=== PATIENT | male | born 1980 | race American Indian/Alaskan Native ===

== ENCOUNTER 2016-05-07 08:20 | Emergency (ER) | payer MEDICAID, OTHER ==
[2016-05-07 08:26] VITALS: BMI 21.3
[2016-05-07] MEDS ORDERED: Albuterol-Ipratrop 3 mg / 0.5 (3 ml) UD INH STA (08:36)
--- NOTE | 2016-05-07 08:46 | C.PDOC ---
History Of Present Illness Patient is a 36 y/o male that presents to the ED for evaluation of non- productive cough, and tactile fever since this morning. Patient states that he developed mild frontal headache this morning as well. Patient admits he ran outside without jacket yesterday. Notes possible sick contact at work. Otherwise , denies any ear pain, throat pain, congestion, shortness of breath, dizziness, vision change, nausea, vomiting, or any to other related symptoms. Time Seen by Provider: 05/07/16 08:31 Chief Complaint (Nursing): Cough, Cold, Congestion History Per: Patient History/Exam Limitations: no limitations Onset/Duration Of Symptoms: Hrs Current Symptoms Are (Timing): Still Present Location Of Pain: Headache Sick Contacts (Context): Individual(s) At Work (possible) Associated Symptoms: Fever (tactile), Cough. denies: Sore Throat, Sputum, Neck Pain, Sinus Drainage, Myalgias, Nasal Congestion, Nausea, Vomiting, Diarrhea Ear Symptoms: Bilateral: None Recent travel outside of the [place]: No Additional History Per: Patient Past Medical History Reviewed: Historical Data, Nursing Documentation, Vital Signs Vital Signs: Last Vital Signs Temp 99.5 F 05/07/16 08:27 Pulse 106 H 05/07/16 08:27 Resp 18 05/07/16 08:27 BP 149/92 H 05/07/16 08:27 Pulse Ox 98 05/07/16 08:54 - Medical History PMH: No Chronic Diseases Family History: States: Unknown Family Hx - Social History Hx Tobacco Use: Yes (HARDLY) Hx Alcohol Use: Yes Hx Substance Use: Yes - Immunization History Hx Tetanus Toxoid Vaccination: No Hx Influenza Vaccination: No Hx Pneumococcal Vaccination: No Review Of Systems Except As Marked, All Systems Reviewed And Found Negative. Constitutional: Positive for: Fever ENT: Negative for: Ear Pain, Nose Discharge, Nose Congestion, Throat Pain Respiratory: Positive for: Cough. Negative for: Shortness of Breath, SOB with Excertion, Sputum, Wheezing Gastrointestinal: Negative for: Nausea, Vomiting Neurological: Positive for: Headache. Negative for: Dizziness Physical Exam - Physical Exam Appears: Non-toxic, No Acute Distress Skin: Normal Color, Warm, Dry Head: Atraumatic, Normacephalic Eye(s): bilateral: Normal Inspection, EOMI Ear(s): Bilateral: Normal Nose: Normal Oral Mucosa: Moist Throat: Normal, No Erythema, No Exudate, No Drooling Neck: Normal ROM, Supple Chest: Symmetrical Cardiovascular: Rhythm Regular Respiratory: Normal Breath Sounds, No Rales, No Rhonchi, No Wheezing Extremity: Bilateral: Atraumatic, Normal Color And Temperature, Normal ROM Neurological/Psych: Oriented x3, Normal Speech Gait: Steady ED Course And Treatment O2 Sat by Pulse Oximetry: 98 (on RA) Pulse Ox Interpretation: Normal - Radiology CXR: Interpreted by Me, Viewed By Me CXR Interpretation: Yes: No Acute Disease Progress Note: CXR ordered and reviewed. Patient was given nebulizer treatment and Motrin PO. Patient remained afebrile and in no acute distress. Advise patient to take cough medicine as needed. Patient advised to also follow up with primary doctor or clinic for further evaluation Disposition Counseled Patient/Family Regarding: Diagnosis, Need For Followup, Rx Given - Disposition Referrals: [facility] [Outside] [facility] [Outside] Disposition: HOME/ ROUTINE Disposition Time: 09:39 Condition: STABLE Additional Instructions: Your chest xray was normal Please follow up with your doctor or clinic in few days for evaluation Take cough medicine as needed Take Tylenol or Motrin alternating every 4-6 hours for Fever 100.4F or higher. Rest and drink plenty of fluids. Prescriptions: Benzonatate [Tessalon Perles] 100 mg PO TID #30 sgl Instructions: Upper Respiratory Infection (ED) - POA Present On Arrival: None - Clinical Impression Clinical Impression: Upper respiratory infection - PA / HEALTH INFORMATION TECH / Resident Statement MD/DO has reviewed & agrees with the documentation as recorded. - Scribe Statement The provider has reviewed the documentation as recorded by the Kim Dong All medical record entries made by the Kim were at my direction and personally dictated by me. I have reviewed the chart and agree that the record accurately reflects my personal performance of the history, physical exam, medical decision making, and the department course for this patient. I have also personally directed, reviewed, and agree with the discharge instructions and disposition.
[2016-05-07] MEDS ORDERED: Albuterol-Ipratrop 3 mg / 0.5 (3 ml) UD ONE (09:00)
--- NOTE | 2016-05-07 10:23 | RAD ---
HISTORY: cough and fever COMPARISON: No prior. TECHNIQUE: Chest PA and lateral FINDINGS: LUNGS: No active pulmonary disease. PLEURA: No significant pleural effusion identified. No pneumothorax apparent. CARDIOVASCULAR: Normal. OSSEOUS STRUCTURES: No significant abnormalities. VISUALIZED UPPER ABDOMEN: Normal. OTHER FINDINGS: None. IMPRESSION: No active disease.
[2016-05-07 10:47] VITALS: BP 138/70; PULSE 90; RESP 16; TEMP 98.2
[2016-05-07 13:58] VITALS: O2SAT 98
== END 2016-05-07 10:44 | disposition home or self-care (01) ==
LOC: C.ER 08:20
DX: J06.9 Acute upper respiratory infection, unspecified (principal); Z72.0 Tobacco use

== ENCOUNTER 2016-11-13 14:42 | Emergency (ER) | payer MEDICAID ==
[2016-11-13 14:42] VITALS: BMI 21.3
[2016-11-13 15:41] VITALS: BP 132/72; PULSE 76; RESP 18; TEMP 97.9; O2SAT 95
== END 2016-11-13 15:38 | disposition left against medical advice (07) ==
LOC: C.ER 14:42
DX: R52 Pain, unspecified (principal); R42 Dizziness and giddiness; Z02.9 Encounter for administrative examinations, unspecified

== ENCOUNTER 2016-11-26 01:31 | Emergency (ER) | payer MEDICAID ==
[2016-11-26 01:31] VITALS: BMI 21.3
[2016-11-26 02:24] VITALS: TEMP 98.8; O2SAT 98
[2016-11-26 03:12] VITALS: BP 139/85; PULSE 88; RESP 16
--- NOTE | 2016-11-26 03:13 | C.PDOC ---
History Of Present Illness 36 year old male who presents to the ER with a complaint of cough and productive clear phlegm for the past week, associated with dizziness today after taking promethazine prescribed by his PMD. Patient reports he is no longer dizzy; denies chest pain, SOB, or palpitations. Time Seen by Provider: 11/26/16 01:58 Chief Complaint (Nursing): Dizziness/Lightheaded History Per: Patient History/Exam Limitations: no limitations Onset/Duration Of Symptoms: Days Current Symptoms Are (Timing): Still Present Recent travel outside of the [place]: No Past Medical History Reviewed: Historical Data, Nursing Documentation, Vital Signs Vital Signs: Last Vital Signs Temp 98.8 F 11/26/16 01:50 Pulse 88 11/26/16 03:11 Resp 16 11/26/16 03:11 BP 139/85 11/26/16 03:11 Pulse Ox 98 11/26/16 03:13 - Medical History PMH: No Chronic Diseases Surgical History: No Surg Hx Family History: States: Unknown Family Hx - Social History Hx Tobacco Use: Yes (HARDLY) Hx Alcohol Use: Yes Hx Substance Use: Yes - Immunization History Hx Tetanus Toxoid Vaccination: No Hx Influenza Vaccination: No Hx Pneumococcal Vaccination: No Review Of Systems Constitutional: Negative for: Fever, Chills Cardiovascular: Negative for: Chest Pain, Palpitations Respiratory: Positive for: Cough, Sputum (Clear). Negative for: Shortness of Breath Neurological: Positive for: Dizziness Physical Exam - Physical Exam Appears: Non-toxic, No Acute Distress Skin: Normal Color, Warm, Dry Head: Atraumatic, Normacephalic Eye(s): bilateral: Normal Inspection, PERRL, EOMI Oral Mucosa: Moist Chest: Symmetrical Cardiovascular: Rhythm Regular Respiratory: Normal Breath Sounds, No Rales, No Rhonchi, No Wheezing Gastrointestinal/Abdominal: Soft, No Tenderness Extremity: Normal ROM (x4) Neurological/Psych: Oriented x3, Normal Speech, Normal Cognition ED Course And Treatment O2 Sat by Pulse Oximetry: 98 (Room air) Pulse Ox Interpretation: Normal - Radiology CXR: Interpreted by Me, Viewed By Me CXR Interpretation: Yes: No Acute Disease Progress Note: On reevaluation, patient is sleeping comfortably and is in no distress; will discharge home with instructions to follow up with PMD. Disposition Counseled Patient/Family Regarding: Diagnosis, Need For Followup, Rx Given - Disposition Disposition: HOME/ ROUTINE Disposition Time: 03:11 Condition: STABLE Additional Instructions: Please follow up with PMD Increase PO fluids Return to ER if worse Prescriptions: Benzonatate [Tessalon Perles] 100 mg PO TID #20 sgl Cetirizine HCl [Zyrtec] 10 mg PO DAILY #20 capsule Instructions: Upper Respiratory Infection (ED) Forms: [employer] (Occitan) - Clinical Impression Clinical Impression: Upper respiratory infection, Drowsiness - Scribe Statement The provider has reviewed the documentation as recorded by the Scribalexa Flores All medical record entries made by the Jefibalexa were at my direction and personally dictated by me. I have reviewed the chart and agree that the record accurately reflects my personal performance of the history, physical exam, medical decision making, and the department course for this patient. I have also personally directed, reviewed, and agree with the discharge instructions and disposition.
--- NOTE | 2016-11-26 12:43 | RAD ---
HISTORY: COUGH, CHEST TIGHTNESS COMPARISON: 05/07/2016 TECHNIQUE: Chest PA and lateral FINDINGS: LUNGS: No active pulmonary disease. PLEURA: No significant pleural effusion identified. No pneumothorax apparent. CARDIOVASCULAR: Normal. OSSEOUS STRUCTURES: No significant abnormalities. VISUALIZED UPPER ABDOMEN: Normal. OTHER FINDINGS: None. IMPRESSION: No active disease. No significant interval change compared to the prior examination(s). Concordant results with the preliminary interpretation rendered by the emergency department physician procedure.
== END 2016-11-26 03:40 | disposition home or self-care (01) ==
LOC: C.ER 01:31
DX: J06.9 Acute upper respiratory infection, unspecified (principal); R40.0 Somnolence

== ENCOUNTER 2016-11-26 14:41 | Emergency (ER) | payer MEDICAID ==
[2016-11-26 14:45] VITALS: BMI 21.8
[2016-11-26 15:33] VITALS: BP 108/71; PULSE 87; RESP 16; TEMP 97.8; O2SAT 99
--- NOTE | 2016-11-26 17:31 | C.PDOC ---
History Of Present Illness Patient is a 36 y/o male who presents to the ED with a complaint of a cough for the last 2 weeks. Patient states cough is unproductive and denies fever. Patient was seen in ED last night for the same symptoms, but did not fill any prescriptions. No other physical complaints at this time. Chief Complaint (Nursing): Cough, Cold, Congestion History Per: Patient History/Exam Limitations: no limitations Onset/Duration Of Symptoms: Days (x2 weeks) Current Symptoms Are (Timing): Still Present Associated Symptoms: denies: Fever, Sputum Past Medical History Reviewed: Historical Data, Nursing Documentation, Vital Signs Vital Signs: Last Vital Signs Temp 97.8 F 11/26/16 15:31 Pulse 87 11/26/16 15:31 Resp 16 11/26/16 15:31 BP 108/71 11/26/16 15:31 Pulse Ox 99 11/26/16 17:32 - Medical History PMH: No Chronic Diseases Surgical History: No Surg Hx Family History: States: Unknown Family Hx - Social History Hx Tobacco Use: Yes (HARDLY) Hx Alcohol Use: Yes Hx Substance Use: Yes - Immunization History Hx Tetanus Toxoid Vaccination: No Hx Influenza Vaccination: No Hx Pneumococcal Vaccination: No Review Of Systems Constitutional: Negative for: Fever Respiratory: Positive for: Cough (non productive) Gastrointestinal: Negative for: Nausea, Vomiting Physical Exam - Physical Exam Appears: Well, Non-toxic, No Acute Distress Skin: Normal Color, Warm, Dry Head: Atraumatic, Normacephalic Oral Mucosa: Moist Tongue: Normal Appearing Throat: Normal Chest: Symmetrical Cardiovascular: Rhythm Regular, No Murmur Respiratory: Normal Breath Sounds, No Rales, No Rhonchi, No Wheezing Neurological/Psych: Oriented x3, Normal Speech, Normal Cognition ED Course And Treatment O2 Sat by Pulse Oximetry: 99 (room air) Pulse Ox Interpretation: Normal Progress Note: Zithromax administered. Disposition - Disposition Disposition: HOME/ ROUTINE Disposition Time: 15:10 Condition: GOOD Additional Instructions: Thank you for letting us take care of you today. Your provider was Dr. Gamble. You were treated for upper respirator infection. The emergency medical care you received today was directed at your acute symptoms. If you were prescribed any medication, please fill it and take as directed. It may take several days for your symptoms to resolve. Return to the Emergency Department if your symptoms worsen, do not improve, or if you have any other problems. Please contact your doctor or call one of the physicians/clinics you have been referred to that are listed on the Patient Visit Information form that is included in your discharge packet. Bring any paperwork you were given at discharge with you along with any medications you are taking to your follow up visit. Our treatment cannot replace ongoing medical care by a primary care provider (PCP) outside of the emergency department. Thank you for allowing the [facility] team to be part of your care today. 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 Follow up with your doctor in 3-4 days for re-evaluation and further management. Prescriptions: Azithromycin [Zithromax] 250 mg PO DAILY #4 tab Instructions: Upper Respiratory Infection (ED) Forms: [employer] (Tanzanian) - Clinical Impression Clinical Impression: Upper respiratory infection - Scribe Statement The provider has reviewed the documentation as recorded by the Scribe Gladys Rowe All medical record entries made by the Scribe were at my direction and personally dictated by me. I have reviewed the chart and agree that the record accurately reflects my personal performance of the history, physical exam, medical decision making, and the department course for this patient. I have also personally directed, reviewed, and agree with the discharge instructions and disposition.
== END 2016-11-26 15:33 | disposition home or self-care (01) ==
LOC: C.ER 14:41
DX: J06.9 Acute upper respiratory infection, unspecified (principal)

== ENCOUNTER 2017-02-21 19:06 | Emergency (ER) | payer MEDICAID ==
[2017-02-21 19:06] VITALS: BMI 21.8
[2017-02-21 20:46] VITALS: O2SAT 97
--- NOTE | 2017-02-21 22:41 | C.PDOC ---
History Of Present Illness 36 year old male with PMHx of migraines presents to the ED c/o headache located on the left side of his head and face radiating down to his neck that started yesterday. 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 He isphotophobic. Patient denies nausea, vomit, diarrhea, fever, chills, nausea, vomit or neck pain. Time Seen by Provider: 02/21/17 21:53 Chief Complaint (Nursing): Headache History Per: Patient History/Exam Limitations: no limitations Onset/Duration Of Symptoms: Hrs Current Symptoms Are (Timing): Still Present Quality: "Pain" Preceeding Symptoms: None Associated Symptoms: Photophobia Recent travel outside of the [place]: No Additional History Per: Patient Past Medical History Reviewed: Historical Data, Nursing Documentation, Vital Signs Vital Signs: Last Vital Signs Temp 98.6 F 02/21/17 20:40 Pulse 92 H 02/21/17 20:40 Resp 20 02/21/17 20:40 BP 132/96 H 02/21/17 20:40 Pulse Ox 97 02/21/17 22:45 - Medical History PMH: No Chronic Diseases Surgical History: No Surg Hx Family History: States: No Known Family Hx Other Family History: Father Hep C - Social History Hx Tobacco Use: Yes (HARDLY) Hx Alcohol Use: Yes Hx Substance Use: Yes - Immunization History Hx Tetanus Toxoid Vaccination: No Hx Influenza Vaccination: No Hx Pneumococcal Vaccination: No Review Of Systems Constitutional: Negative for: Fever, Chills Cardiovascular: Negative for: Chest Pain, Palpitations Respiratory: Negative for: Cough, Shortness of Breath Gastrointestinal: Negative for: Nausea, Vomiting, Abdominal Pain Musculoskeletal: Positive for: Neck Pain Neurological: Positive for: Headache, Dizziness. Negative for: Weakness, Numbness Physical Exam - Physical Exam Appears: Non-toxic, No Acute Distress Skin: Normal Color, Warm, Dry Head: Atraumatic, Normacephalic Eye(s): bilateral: Normal Inspection, PERRL, Other (sensitive to light ) Nose: No Discharge, No Deformity Oral Mucosa: Moist Neck: Normal ROM, Supple Lymphatic: No Adenopathy Chest: Symmetrical Cardiovascular: Rhythm Regular, No Murmur Respiratory: Normal Breath Sounds, No Rales, No Rhonchi, No Wheezing Gastrointestinal/Abdominal: Soft, No Tenderness, No Guarding, No Rebound Extremity: Normal ROM, No Pedal Edema, No Calf Tenderness, No Deformity, No Swelling Neurological/Psych: Oriented x3, Normal Speech, Normal Cognition Gait: Steady ED Course And Treatment - Laboratory Results Result Diagrams: 02/21/17 23:25 02/21/17 23:25 Lab Interpretation: No Acute Changes O2 Sat by Pulse Oximetry: 97 (On RA) Pulse Ox Interpretation: Normal Reevaluation Time: 00:01 Reassessment Condition: Improved (sleeping quietly) Medical Decision Making Medical Decision Making: Plan: * Decadron 10 mg IVP * Reglan 10 mg IV Disposition Counseled Patient/Family Regarding: Studies Performed, Diagnosis, Need For Followup, Rx Given - Disposition Referrals: [facility] at [facility] [Outside] Disposition: HOME/ ROUTINE Disposition Time: 00:05 Condition: IMPROVED Prescriptions: Naproxen [Naprosyn] 1 tab PO BID PRN #25 tab PRN Reason: Pain Instructions: Migraine Headache (ED) Forms: [employer] (Danish) - Clinical Impression Clinical Impression: Migraine, Headache - Scribe Statement The provider has reviewed the documentation as recorded by the Scribe Easton Perez All medical record entries made by the Scribe were at my direction and personally dictated by me. I have reviewed the chart and agree that the record accurately reflects my personal performance of the history, physical exam, medical decision making, and the department course for this patient. I have also personally directed, reviewed, and agree with the discharge instructions and disposition.
[2017-02-21] MEDS: Dexamethasone 4 mg/1 ml IVP STA (23:25)
[2017-02-21 23:27] LABS: BASO % 0.6 % (0.0-2.0); EOS # 0.1 K/uL (0.0-0.7); LYMPH # 2.3 K/uL (1.0-4.3); LYMPH % 45.5 % (20.0-40.0); MEAN CELL VOLUME 84.2 fL (80.0-94.0); MEAN CORPUSCULAR HEMOGLOBIN 28.6 pg (27.0-31.0); MEAN PLATELET VOLUME 6.6 fL (7.2-11.7); MONO # 0.4 K/uL (0.0-0.8); MONO % 8.2 % (0.0-10.0); NEUT # 2.2 K/uL (1.8-7.0); NEUT % 44.7 % (50.0-75.0); NRBC % 0.1 % (0.0-2.0); RBC 4.54 Mil/uL (4.40-5.90); RED CELL DISTRIBUTION WIDTH 14.3 % (11.5-14.5)
[2017-02-21 23:44] LABS: ALB/GLOB RATIO 1.5 (1.0-2.1); ALBUMIN 4.2 g/dL (3.5-5.0); ALT/SGPT 22 U/L (21-72); AST/SGOT 28 U/L (17-59); BLOOD UREA NITROGEN 10 mg/dL (9-20); CALCIUM 8.8 mg/dl (8.6-10.4); GFR AFRICAN-AMERICAN > 60; GFR NON-AFRICAN AMERICAN > 60
[2017-02-22 00:30] VITALS: BP 132/82; PULSE 66; RESP 16; TEMP 98.2
== END 2017-02-22 00:31 | disposition home or self-care (01) ==
LOC: C.ER 19:06
DX: G43.909 Migraine, unspecified, not intractable, without status migrainosus (principal); Z87.891 Personal history of nicotine dependence
CPT/HCPCS: 80053; 85025; 96374; 99284; J1100

== ENCOUNTER 2017-04-06 05:43 | Emergency (ER) | payer MEDICAID ==
[2017-04-06 05:44] VITALS: BMI 21.8
[2017-04-06 05:53] VITALS: BP 117/83; PULSE 97; RESP 22; TEMP 98.5; O2SAT 100
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
--- NOTE | 2017-04-06 06:07 | C.PDOC ---
Chief Complaint (Nursing): Upper Extremity Problem/Injury Past Medical History Vital Signs: Last Vital Signs Temp 98.5 F 04/06/17 05:51 Pulse 97 H 04/06/17 05:51 Resp 22 04/06/17 05:51 BP 117/83 04/06/17 05:51 Pulse Ox 100 04/06/17 05:51 Family History: States: Unknown Family Hx - Social History Hx Tobacco Use: Yes (HARDLY) Hx Alcohol Use: Yes Hx Substance Use: Yes - Immunization History Hx Tetanus Toxoid Vaccination: No Hx Influenza Vaccination: No Hx Pneumococcal Vaccination: No ED Course And Treatment O2 Sat by Pulse Oximetry: 100 Disposition - Disposition
--- NOTE | 2017-04-06 08:28 | RAD ---
PROCEDURE: Radiographs of the right elbow. HISTORY: pain COMPARISON: No prior. FINDINGS: BONES: Normal. No fracture. JOINTS: Normal. No osteoarthritis. SOFT TISSUES: Normal. JOINT EFFUSION: None. OTHER FINDINGS: None. IMPRESSION: Unremarkable radiographs of the right elbow.
--- NOTE | 2017-04-06 08:29 | RAD ---
PROCEDURE: Radiographs of the Right Forearm HISTORY: pain COMPARISON: None available. TECHNIQUE: Frontal and lateral views obtained. FINDINGS: BONES: No fracture or destructive lesion. JOINT SPACES: Unremarkable. OTHER FINDINGS: None. IMPRESSION: Unremarkable radiographs of the right forearm.
== END 2017-04-06 06:50 | disposition home or self-care (01) ==
LOC: C.ER 05:43
DX: S53.401A Unspecified sprain of right elbow, initial encounter (principal); S56.911A Strain of unspecified muscles, fascia and tendons at forearm level, right arm, initial encounter; X50.0XXA Overexertion from strenuous movement or load, initial encounter; Y92.9 Unspecified place or not applicable

== ENCOUNTER 2017-07-05 19:28 | Emergency (ER) | payer MEDICAID ==
[2017-07-05 19:29] VITALS: BMI 21.8
[2017-07-05 19:48] VITALS: BP 159/94; PULSE 111; RESP 20; TEMP 99.1; O2SAT 99
--- NOTE | 2017-07-05 20:23 | C.PDOC ---
Time Seen by Provider: 07/05/17 20:04 Chief Complaint (Nursing): Medical Clearance Past Medical History Vital Signs: Last Vital Signs Temp 99.1 F 07/05/17 19:47 Pulse 111 H 07/05/17 19:47 Resp 20 07/05/17 19:47 BP 159/94 H 07/05/17 19:47 Pulse Ox 99 07/05/17 21:02 Family History: States: Unknown Family Hx - Social History Hx Tobacco Use: Yes (HARDLY) Hx Alcohol Use: Yes Hx Substance Use: Yes - Immunization History Hx Tetanus Toxoid Vaccination: No Hx Influenza Vaccination: No Hx Pneumococcal Vaccination: No ED Course And Treatment O2 Sat by Pulse Oximetry: 99 Medical Decision Making Medical Decision Makin pt not found in assigned area [id number] pt not found in assigned area [id number] pt not found in assigned area, lwbs. Disposition - Disposition Disposition: LEFT W/O BEING SEEN - ER ONLY Disposition Time: 21:00 Condition: UNKNOWN Forms: [employer] (Ecuadorean) - Clinical Impression Clinical Impression: Medical assessment
== END 2017-07-05 21:00 | disposition left against medical advice (07) ==
LOC: C.ER 19:28
DX: Z02.89 Encounter for other administrative examinations (principal); R52 Pain, unspecified

== ENCOUNTER 2017-08-09 18:08 | Emergency (ER) | payer MEDICAID ==
[2017-08-09 18:18] VITALS: BMI 21.9
[2017-08-09 18:21] VITALS: BP 159/100; PULSE 98; RESP 18; TEMP 99.1; O2SAT 99
--- NOTE | 2017-08-09 18:31 | C.PDOC ---
History Of Present Illness 37-year-old male presents to the ED for evaluation of slight dizziness. Patient states he has been using marijuana consistently for the past 5 days. Patient has prior evaluations for similar substance abuse and anxiety-related issues with no distinct psychiatric diagnoses. Patient denies suicidal/homicidal ideation and has no other complaints at this time. Time Seen by Provider: 08/09/17 18:22 Chief Complaint (Nursing): Dizziness/Lightheaded History Per: Patient History/Exam Limitations: no limitations Onset/Duration Of Symptoms: Days (5) Current Symptoms Are (Timing): Still Present Fall Associated With With Symptoms: No Additional History Per: Patient Past Medical History Reviewed: Historical Data, Nursing Documentation, Vital Signs Vital Signs: Last Vital Signs Temp 99.1 F 08/09/17 18:18 Pulse 98 H 08/09/17 18:18 Resp 18 08/09/17 18:46 BP 159/100 H 08/09/17 18:18 Pulse Ox 99 08/09/17 22:42 - Medical History PMH: Arthritis Surgical History: No Surg Hx Family History: States: Unknown Family Hx - Social History Hx Tobacco Use: Yes (HARDLY) Hx Alcohol Use: Yes Hx Substance Use: Yes - Immunization History Hx Tetanus Toxoid Vaccination: No Hx Influenza Vaccination: No Hx Pneumococcal Vaccination: No Review Of Systems Neurological: Positive for: Dizziness Psych: Positive for: Other (marijuana use ). Negative for: Suicidal ideation Physical Exam - Physical Exam Appears: Non-toxic, No Acute Distress, Other (intoxicated, under influence of marijuana ) Skin: Normal Color, Warm, Dry Head: Atraumatic, Normacephalic Eye(s): bilateral: Normal Inspection Oral Mucosa: Moist Neck: Supple Chest: Symmetrical, No Deformity, No Tenderness Cardiovascular: Rhythm Regular, No Murmur Respiratory: Normal Breath Sounds, No Rales, No Rhonchi, No Wheezing Extremity: Normal ROM, Capillary Refill (less than 2 seconds ) Neurological/Psych: Oriented x3, Other (slightly bizarre affect) ED Course And Treatment O2 Sat by Pulse Oximetry: 99 (on RA ) Pulse Ox Interpretation: Normal Medical Decision Making Medical Decision Making: marijuana abuse, mild dizziness normal neuro exam, no ataxia noted. educated for more thorough neuro exam when clean/sober x 5 days. Disposition Doctor Will See Patient In The: Office Counseled Patient/Family Regarding: Studies Performed, Diagnosis - Disposition Referrals: [facility] [Outside] [facility] [Outside] [facility] [Outside] [facility] [Outside] Disposition: HOME/ ROUTINE Disposition Time: 18:30 Condition: GOOD Additional Instructions: seek outpatient resources for your anxiety and substance abuse issues as needed. Instructions: Anxiety, Adult (DC) Forms: [facility] (Liberian) - Clinical Impression Clinical Impression: Anxiety, Marijuana abuse - Scribe Statement The provider has reviewed the documentation as recorded by the Scribe (Tiffany Dong) Provider Attestation: All medical record entries made by the Scribe were at my direction and personally dictated by me. I have reviewed the chart and agree that the record accurately reflects my personal performance of the history, physical exam, medical decision making, and the department course for this patient. I have also personally directed, reviewed, and agree with the discharge instructions and disposition.
== END 2017-08-09 18:46 | disposition home or self-care (01) ==
LOC: C.ER 18:08
DX: F41.9 Anxiety disorder, unspecified (principal); F12.10 Cannabis abuse, uncomplicated

== ENCOUNTER 2017-11-16 18:52 | Emergency (ER) | payer MEDICAID ==
[2017-11-16 19:04] VITALS: BMI 21.7
--- NOTE | 2017-11-16 19:18 | C.PDOC ---
History Of Present Illness 37 yo male with PMH arthritis c/o right shoulder pain for 2 weeks. Pt is aggravated by movement. Notes he was evaluated by [facility] and they "didnt do nothing". Taking Naproxen without significant relief. Denies trauma, change in sensation, chest pain, sob, weakness. Left hand dominant. Time Seen by Provider: 11/16/17 19:11 Chief Complaint (Nursing): Upper Extremity Problem/Injury History Per: Patient History/Exam Limitations: no limitations Onset/Duration Of Symptoms: Days Current Symptoms Are (Timing): Still Present Past Medical History Vital Signs: Last Vital Signs Temp 99.5 F 11/16/17 19:04 Pulse 102 H 11/16/17 19:04 Resp 20 11/16/17 19:04 BP 128/82 11/16/17 19:04 Pulse Ox 98 11/16/17 19:04 - Medical History PMH: Arthritis Family History: States: Unknown Family Hx - Social History Hx Tobacco Use: Yes (HARDLY) Hx Alcohol Use: Yes Hx Substance Use: Yes (weed) - Immunization History Hx Tetanus Toxoid Vaccination: No Hx Influenza Vaccination: No Hx Pneumococcal Vaccination: No Review Of Systems Except As Marked, All Systems Reviewed And Found Negative. Musculoskeletal: Positive for: Shoulder Pain Physical Exam - Physical Exam Appears: Well, Non-toxic, No Acute Distress Skin: Normal Color, Warm, Dry Head: Atraumatic, Normacephalic Eye(s): bilateral: Normal Inspection, EOMI Nose: Normal Neck: Normal, Normal ROM, Supple Chest: Symmetrical Cardiovascular: Rhythm Regular Respiratory: Normal Breath Sounds, No Accessory Muscle Use Back: Normal Inspection Extremity: Normal ROM, Tenderness (diffuse to the right shoulder), Capillary Refill (<2 sec), No Swelling Neurological/Psych: Oriented x3, Normal Speech, Normal Motor (5/5 against re sistance), Normal Sensation ED Course And Treatment O2 Sat by Pulse Oximetry: 98 - Other Rad Right shoulder XR X-Ray: Interpreted by Me, Viewed By Me Interpretation: no fx or dislocation Progress Note: Pt was given toradol. On re-evalaution, pain improved. No change in sensation. Afebrile. Lungs CTA. No chest pain or sob. Pt instructed RICE and follow up with ortho in 1-2 days. Disposition - Disposition Referrals: Jose Rodriguez MD [Staff Provider] - Disposition: HOME/ ROUTINE Disposition Time: 19:17 Condition: STABLE Additional Instructions: Rest and ice the area. Follow up with the bone doctor in 1-2 days. Instructions: Shoulder Sprain (DC) - Clinical Impression Clinical Impression: Right shoulder pain
[2017-11-16 19:51] VITALS: BP 130/70; PULSE 95; RESP 18; TEMP 98.9
[2017-11-16 21:36] VITALS: O2SAT 98
--- NOTE | 2017-11-17 15:09 | RAD ---
Date of service: 11/16/2017 PROCEDURE: Radiographs of the Right Shoulder HISTORY: pain COMPARISON: No prior. FINDINGS: BONES: Normal. No fracture. JOINTS: Normal. Glenohumeral and acromioclavicular joints preserved. No osteoarthritis. SOFT TISSUES: Normal. OTHER FINDINGS: None. IMPRESSION: Normal radiographs of the right shoulder.
== END 2017-11-16 19:51 | disposition home or self-care (01) ==
LOC: C.ER 18:52
DX: M25.511 Pain in right shoulder (principal)
CPT/HCPCS: 73030; 96372; 99282; J1885

== ENCOUNTER 2017-12-29 12:56 | Emergency (ER) | payer MEDICAID ==
[2017-12-29 12:56] VITALS: BMI 21.7
[2017-12-29 13:23] VITALS: RESP 18
--- NOTE | 2017-12-29 13:43 | C.PDOC ---
History Of Present Illness 37 year old male presents to ED complaining of right lower back pain that started when he was 13 years old. Patient reports pain is exacerbated with movement. Patient also complains of a subjective sinus infection "since 2008", stuffy nose, and runny nose. Denies taking anything at home for symptoms, fever, chills, numbness, weakness. Time Seen by Provider: 12/29/17 13:27 Chief Complaint (Nursing): Back Pain History Per: Patient History/Exam Limitations: no limitations Onset/Duration Of Symptoms: Days Current Symptoms Are (Timing): Still Present Past Medical History Reviewed: Historical Data, Nursing Documentation, Vital Signs Vital Signs: Last Vital Signs Temp 99 F 12/29/17 13:19 Pulse 102 H 12/29/17 13:19 Resp 18 12/29/17 13:19 BP 121/85 12/29/17 13:19 Pulse Ox 99 12/29/17 13:19 - Medical History PMH: Arthritis, Back Problems, Rheumatoid Arthritis Surgical History: No Surg Hx Family History: States: No Known Family Hx - Social History Hx Tobacco Use: Yes (HARDLY) Hx Alcohol Use: No Hx Substance Use: Yes (weed) - Immunization History Hx Tetanus Toxoid Vaccination: No Hx Influenza Vaccination: No Hx Pneumococcal Vaccination: No Review Of Systems Constitutional: Negative for: Fever, Chills ENT: Positive for: Nose Discharge, Nose Congestion, Other (Sinus infection since 2008 and runny nose.). Negative for: Ear Pain, Ear Discharge Genitourinary: Negative for: Dysuria Musculoskeletal: Positive for: Back Pain. Negative for: Neck Pain Skin: Negative for: Rash Neurological: Negative for: Weakness, Numbness Physical Exam - Physical Exam Appears: Well, Non-toxic, No Acute Distress Skin: Warm, Dry Head: Atraumatic, Normacephalic Eye(s): bilateral: Normal Inspection Ear(s): Bilateral: Normal Nose: Other (Mild swelling to nasal turbinates.) Oral Mucosa: Moist Throat: No Erythema, No Exudate Neck: Supple Back: No Vertebral Tenderness, Other (Mild paralumbar tenderness right side.) Extremity: Normal ROM, No Tenderness, No Swelling Neurological/Psych: Oriented x3, Normal Speech, Normal Cognition, Normal Motor, Normal Sensation ED Course And Treatment O2 Sat by Pulse Oximetry: 99 (RA) Pulse Ox Interpretation: Normal Disposition Counseled Patient/Family Regarding: Diagnosis, Need For Followup, Rx Given - Disposition Referrals: Eber Washington MD [Staff Provider] - Good Moser MD [Staff Provider] - Ricardo Morris III, MD [Staff Provider] - Disposition: HOME/ ROUTINE Disposition Time: 13:41 Condition: GOOD Additional Instructions: Follow up with Dr Moser; physical therapy for back recommended. Take ibuprofen for pain. Take Claritin D for sinus symptoms and follow up wiht Dr Washington . Prescriptions: Ibuprofen [Motrin] 600 mg PO TID #30 tab Loratadine/Pseudoephedrine [Claritin-D 24 Hour Tablet] 1 each PO DAILY 14 Days #14 tab.er.[id number] Instructions: Seasonal Allergies in Adults, Low Back Pain (DC) Forms: [facility] (Belarusian), General Discharge Instructions - Clinical Impression Clinical Impression: Low back pain, Rhinitis - PA / SECURITY ORDERLY / Resident Statement MD/DO has reviewed & agrees with the documentation as recorded. - Scribe Statement The provider has reviewed the documentation as recorded by the Jefibalexa Barney All medical record entries made by the Jefibalexa were at my direction and personally dictated by me. I have reviewed the chart and agree that the record accurately reflects my personal performance of the history, physical exam, medical decision making, and the department course for this patient. I have also personally directed, reviewed, and agree with the discharge instructions and disposition.
[2017-12-29 13:50] VITALS: BP 118/78; PULSE 86; TEMP 98.8
[2017-12-29 15:59] VITALS: O2SAT 99
== END 2017-12-29 13:52 | disposition home or self-care (01) ==
LOC: C.ER 12:56
DX: M54.5 Low back pain (principal); J31.0 Chronic rhinitis; M06.9 Rheumatoid arthritis, unspecified; Z72.0 Tobacco use

== ENCOUNTER 2018-01-29 17:37 | Emergency (ER) | payer MEDICAID ==
[2018-01-29 18:16] VITALS: BMI 20.1
--- NOTE | 2018-01-29 18:45 | C.PDOC ---
History Of Present Illness 37 year old male is brought to the ED by police for evaluation of bizarre behavior an anxiety noted today. Patient admits to using PCP today. Patient has many prior visits related to anxiety and cannabis and PCP abuse. Patient reports increased anxiety due to family issues, which lead to him smoking marijuana and PCP. Patient presents to the ED without handcuffs and is cooperative but anxious with police. Patient denies suicidal/homicidal ideation at this time. Time Seen by Provider: 01/29/18 18:01 Chief Complaint (Nursing): Substance Abuse History Per: Patient History/Exam Limitations: no limitations Onset/Duration Of Symptoms: Hrs Current Symptoms Are (Timing): Still Present Suicide/Self Injury Attempted (Context): None Modifying Factor(s): Marijuana, Other (PCP) Associated Symptoms: Anxiety. denies: Suicidal Thoughts, Suicidal Plan Involuntary Hold By: None Recent travel outside of the [place]: No Additional History Per: Patient, Law Enforcement Past Medical History Reviewed: Historical Data, Nursing Documentation, Vital Signs Vital Signs: Last Vital Signs Temp 99.1 F 01/29/18 18:00 Pulse 108 H 01/29/18 18:00 Resp 20 01/29/18 18:00 BP 156/91 H 01/29/18 18:00 Pulse Ox 97 01/29/18 18:00 - Medical History PMH: Anxiety, Arthritis, Asthma, Back Problems, Rheumatoid Arthritis Surgical History: No Surg Hx Family History: States: Unknown Family Hx - Social History Hx Tobacco Use: Yes (HARDLY) Hx Alcohol Use: Yes Hx Substance Use: Yes - Immunization History Hx Tetanus Toxoid Vaccination: No Hx Influenza Vaccination: No Hx Pneumococcal Vaccination: No Review Of Systems Psych: Positive for: Anxiety, Other (bizarre behavior, marijuana and PCP use ). Negative for: Suicidal ideation Physical Exam - Physical Exam Appears: Non-toxic, No Acute Distress, Other (calm and cooperative ) Skin: Normal Color, Warm, Dry Head: Atraumatic, Normacephalic Eye(s): bilateral: Normal Inspection Oral Mucosa: Moist Neck: Supple Chest: Symmetrical, No Deformity Cardiovascular: Rhythm Regular Respiratory: No Accessory Muscle Use Extremity: Normal ROM Neurological/Psych: Other (bizarre, anxious ) ED Course And Treatment O2 Sat by Pulse Oximetry: 97 (on RA) Pulse Ox Interpretation: Normal Reevaluation Time: 19:43 (clinically sober, cooperative and coherent, wants d/c to street.) Reassessment Condition: Improved Medical Decision Making Medical Decision Making: persistent marijuana and PCP abuse Disposition Doctor Will See Patient In The: Office Counseled Patient/Family Regarding: Studies Performed, Diagnosis - Disposition Disposition: HOME/ ROUTINE Disposition Time: 19:43 Condition: GOOD Forms: [facility] (Guyanese) - Clinical Impression Clinical Impression: Drug abuse, Anxiety, Marijuana abuse, PCP (phencyclidine) abuse - Scribe Statement The provider has reviewed the documentation as recorded by the Scribe (Tiffany Dong) Provider Attestation: All medical record entries made by the Scribe were at my direction and personally dictated by me. I have reviewed the chart and agree that the record accurately reflects my personal performance of the history, physical exam, medical decision making, and the department course for this patient. I have also personally directed, reviewed, and agree with the discharge instructions and disposition.
[2018-01-29 19:46] VITALS: BP 144/80; PULSE 92; RESP 16; TEMP 98; O2SAT 98
== END 2018-01-29 19:49 | disposition home or self-care (01) ==
LOC: C.ER 17:37 → MERGE 17:37 → C.ER 19:49
DX: F41.9 Anxiety disorder, unspecified (principal); F12.10 Cannabis abuse, uncomplicated; F16.10 Hallucinogen abuse, uncomplicated